=== PATIENT | female | born 1970 | race African-American/Black ===

== ENCOUNTER 2019-09-08 10:34 | Inpatient (IN) | payer MEDICAID ==
[~2019-09-08] VITALS: Ht 165.1 cm; Wt 68.2 kg
[2019-09-08] MEDS ORDERED: PIPERACILLIN/TAZ 3.375G PREMIX 50 ML IV ONE (11:00)
[2019-09-08] MEDS ORDERED: VANCOMYCIN 1 G PREMIX 200 ML IV ONE (11:00)
[2019-09-08 12:21] LABS: CLARITY URINE CLEAR (CLEAR); COLOR URINE YELLOW (YELLOW); KETONES URINE NEGATIVE (NEGATIVE); LEUKOCYTE ESTERASE URINE 1+ (NEGATIVE); NITRITE URINE NEGATIVE (NEGATIVE); OCCULT BLOOD URINE NEGATIVE (NEGATIVE); PH URINE 6.5 (4.5-8.0); PROTEIN URINE TRACE (NEGATIVE); SPECIFIC GRAVITY URINE 1.009 (1.005-1.030)
[2019-09-08] MEDS ORDERED: MORPHINE SULFATE 4 MG/ML CPJ (NOT FOR IM USE) IV ONE (12:30)
[2019-09-08 13:10] LABS: BASOPHILS % 0.6 % (0.0-2.0); EOSINOPHILS % 0.3 % (0.0-5.0); HEMATOCRIT. 33.1 % (36.0-48.0); LYMPHOCYTES % 12.7 % (20.0-50.0); MEAN CORPUSCULAR HEMOGLOBIN 29.1 pg (28.0-32.0); MEAN CORPUSCULAR VOLUME 87.5 fL (81.0-99.0); MEAN PLATELET VOLUME 7.9 fl (7.4-10.4); MONOCYTES % 5.4 % (2.0-8.0); PLATELET 514 x1000/uL (130-400); RED BLOOD CELL COUNT 3.79 mill/uL (4.2-5.4); RED CELL DISTRIBUTION WIDTH 15.6 % (11.6-14.6)
[2019-09-08 13:17] LABS: CHLORIDE 99 mEq/L (98-107)
[2019-09-08 13:27] LABS: INR 1.2; PROTHROMBIN TIME 12.7 sec (9.6-11.0)
[2019-09-08] MEDS: SODIUM CHLORIDE 0.9% 1,000 ML IV SCH (13:38)
[2019-09-08] MEDS ORDERED: POTASSIUM CHLORIDE 20MEQ/PACKET PO NR (13:45)
[2019-09-08] MEDS ORDERED: PIPERACILLIN/TAZ 3.375G PREMIX 50 ML IV SCH (13:45)
[2019-09-08] MEDS ORDERED: ONDANSETRON HCL 4MG/2ML INJ IV PRN (13:45)
[2019-09-08] MEDS ORDERED: ACETAMINOPHEN 325MG TABLET PO PRN (13:45)
[2019-09-08] MEDS ORDERED: POTASSIUM CHLORIDE INJ 40 MEQ in DEXT 5% WATER 250 ML IV NR (14:00)
[2019-09-08] MEDS: MORPHINE SULFATE 2 MG/ML CPJ (NOT FOR IM USE) IV PRN ×2 (15:02→23:59)
[2019-09-08] MEDS ORDERED: HYDROCODONE/ACETAMINOPHEN 5/325MG TABLET PO PRN (16:30)
[2019-09-08] MEDS: HYDROCODONE/ACETAMINOPHEN 5/325MG TABLET PO PRN (16:35)
[2019-09-08 17:53] LABS: PHOSPHORUS 1.9 mg/dL (2.5-4.9)
[2019-09-08] MEDS ORDERED: MAGNESIUM 2 G PREMIX 50 ML IV NR (21:07)
[2019-09-08 21:31] LABS: TOTAL IRON BINDING CAPACITY 249 ug/dL (250-450)
[2019-09-08 22:30] VITALS: BP 141/92
[2019-09-08 23:38] VITALS: BP 136/88
[2019-09-09] MEDS ORDERED: OMEP20TA15 MT (00:16)
[2019-09-09] MEDS: VANCOMYCIN 750 MG PREMIX 150 ML IV SCH ×3 (00:46→18:26)
[2019-09-09 04:00] VITALS: BP 140/93
[2019-09-09] MEDS: MORPHINE SULFATE 2 MG/ML CPJ (NOT FOR IM USE) IV PRN ×2 (04:05→21:54)
[2019-09-09 08:27] VITALS: BP 150/82
[2019-09-09] MEDS: PIPERACILLIN/TAZOBACTAM 3.375 G in DEXT 5% WATER 100 ML IV SCH ×4 (08:55→17:04)
[2019-09-09] MEDS: HYDROCODONE/ACETAMINOPHEN 5/325MG TABLET PO PRN ×3 (08:55→17:47)
[2019-09-09 11:36] VITALS: BP 145/96
[2019-09-09 16:13] VITALS: BP 155/91
[2019-09-09] MEDS: SODIUM CHLORIDE 0.9% 1,000 ML IV SCH (18:27)
[2019-09-09 19:52] LABS: HEMATOCRIT. 26.2 % (36.0-48.0); HEMOGLOBIN. 8.9 g/dL (12.0-16.0); MEAN CORPUSCULAR HEMOGLOBIN 29.8 pg (28.0-32.0); MEAN CORPUSCULAR VOLUME 87.2 fL (81.0-99.0); MEAN PLATELET VOLUME 7.8 fl (7.4-10.4); MONOCYTES % 8.8 % (2.0-8.0); NEUTROPHILS % 60.2 % (40.0-76.0); PLATELET 416 x1000/uL (130-400); RED CELL DISTRIBUTION WIDTH 15.5 % (11.6-14.6)
[2019-09-09 19:54] LABS: CHLORIDE 103 mEq/L (98-107)
[2019-09-09 20:00] VITALS: BP 155/101
[2019-09-09 20:03] LABS: LDL CHOLESTEROL 88 mg/dL (5-100)
[2019-09-09 20:04] LABS: HDL CHOLESTEROL 26 mg/dL (40-59)
[2019-09-09] MEDS ORDERED: POTASSIUM CHLORIDE 20MEQ TABLET SR PO SCH (21:21)
[2019-09-09] MEDS ORDERED: MAGNESIUM 4 G PREMIX 100 ML IV SCH (23:00)
[2019-09-10] VITALS: BP 158/91
[2019-09-10] MEDS: PIPERACILLIN/TAZOBACTAM 3.375 G in DEXT 5% WATER 100 ML IV SCH ×3 (00:44→16:40)
[2019-09-10] MEDS: MORPHINE SULFATE 2 MG/ML CPJ (NOT FOR IM USE) IV PRN ×6 (02:12→22:19)
[2019-09-10] MEDS: VANCOMYCIN 750 MG PREMIX 150 ML IV SCH ×3 (02:16→21:10)
[2019-09-10 04:00] VITALS: BP 150/100
[2019-09-10 06:11] LABS: BASOPHILS % 0.9 % (0.0-2.0); EOSINOPHILS % 2.9 % (0.0-5.0); HEMATOCRIT. 27.7 % (36.0-48.0); HEMOGLOBIN. 9.4 g/dL (12.0-16.0); LYMPHOCYTES % 24.6 % (20.0-50.0); MEAN CORPUSCULAR HEMOGLOBIN 29.5 pg (28.0-32.0); MONOCYTES % 7.7 % (2.0-8.0); NEUTROPHILS % 63.9 % (40.0-76.0); PLATELET 413 x1000/uL (130-400); RED BLOOD CELL COUNT 3.18 mill/uL (4.2-5.4); RED CELL DISTRIBUTION WIDTH 15.6 % (11.6-14.6)
[2019-09-10 06:29] LABS: CHLORIDE 106 mEq/L (98-107)
[2019-09-10 08:00] VITALS: BP 157/105
[2019-09-10 12:00] VITALS: BP 147/100
[2019-09-10 16:00] VITALS: BP 158/111
[2019-09-10 20:00] VITALS: BP 156/104
[2019-09-11] MEDS: PIPERACILLIN/TAZOBACTAM 3.375 G in DEXT 5% WATER 100 ML IV SCH ×3 (00:01→16:00)
[2019-09-11] MEDS: MORPHINE SULFATE 2 MG/ML CPJ (NOT FOR IM USE) IV PRN ×4 (02:28→19:59)
[2019-09-11 04:00] VITALS: BP 169/108
[2019-09-11] MEDS: CLONIDINE 0.1MG TABLET PO PRN ×2 (04:18→10:05)
[2019-09-11 06:00] VITALS: BP 137/95
[2019-09-11 06:50] LABS: CHLORIDE 107 mEq/L (98-107)
[2019-09-11 06:54] LABS: EOSINOPHILS % 3.1 % (0.0-5.0); HEMATOCRIT. 29.8 % (36.0-48.0); HEMOGLOBIN. 9.9 g/dL (12.0-16.0); LYMPHOCYTES % 29.5 % (20.0-50.0); MEAN CORPUSCULAR HEMOGLOBIN 29.3 pg (28.0-32.0); MEAN CORPUSCULAR VOLUME 87.8 fL (81.0-99.0); MEAN PLATELET VOLUME 7.9 fl (7.4-10.4); MONOCYTES % 6.8 % (2.0-8.0); NEUTROPHILS % 59.6 % (40.0-76.0); PLATELET 492 x1000/uL (130-400); RED BLOOD CELL COUNT 3.39 mill/uL (4.2-5.4)
[2019-09-11 06:56] LABS: PHOSPHORUS 3.9 mg/dL (2.5-4.9)
[2019-09-11 08:00] VITALS: BP 166/107
[2019-09-11] MEDS: VANCOMYCIN 750 MG PREMIX 150 ML IV SCH ×2 (09:19→20:26)
[2019-09-11 12:00] VITALS: BP 146/101
[2019-09-11] MEDS ORDERED: LIDOCAINE HCL 1% 20ML VIAL (Pyxis) INJ ONE ×2 (14:42→16:38)
[2019-09-11] MEDS ORDERED: BUPIVACAINE HCL/PF 0.5% (5MG/ML) 10ML ONE ×2 (14:42→15:14)
[2019-09-11] MEDS ORDERED: BACITRACIN 50,000 UNITS/VIAL ONE (14:43)
[2019-09-11 16:00] VITALS: BP 147/98
[2019-09-11] MEDS ORDERED: PROPOFOL 200MG/20ML VIAL IV ONE (16:37)
[2019-09-11] MEDS ORDERED: ROCURONIUM BROMIDE 10MG/ML VIAL 5ML IV ONE (16:37)
[2019-09-11] MEDS ORDERED: MIDAZOLAM HCL 2 MG/2 ML VIAL ONE (16:38)
[2019-09-11] MEDS ORDERED: FENTANYL CITRATE/PF 50MCG/ML 2ML VIAL ONE (16:38)
[2019-09-11] MEDS ORDERED: EPHEDRINE SULFATE 50MG/ML VIAL ONE (16:52)
[2019-09-11] MEDS ORDERED: MAGNESIUM 4 G PREMIX 100 ML IV NR ×2 (17:00→21:00)
[2019-09-11] MEDS ORDERED: ONDANSETRON HCL 4MG/2ML INJ ONE (17:12)
[2019-09-11] MEDS ORDERED: DEXAMETHASONE 4MG/ML 1ML VIAL ONE (17:12)
[2019-09-11] MEDS ORDERED: HYDROMORPHONE HCL/PF 2MG/ML CPJ IV PRN (17:45)
[2019-09-11 20:00] VITALS: BP 107/67
[2019-09-11] MEDS: ASCORBIC ACID 500 MG TABLET PO SCH (20:26)
[2019-09-11] MEDS: SODIUM CHLORIDE 0.9% 1,000 ML IV SCH (21:38)
[2019-09-12] VITALS: BP 152/103
[2019-09-12] MEDS: CLONIDINE 0.1MG TABLET PO PRN ×2 (00:15→07:04)
[2019-09-12] MEDS: MORPHINE SULFATE 2 MG/ML CPJ (NOT FOR IM USE) IV PRN ×6 (00:17→21:32)
[2019-09-12 04:00] VITALS: BP 131/93
[2019-09-12] MEDS: CEFAZOLIN 2,000 MG in DEXT 5% WATER 100 ML IV SCH ×3 (05:13→21:30)
[2019-09-12 07:39] LABS: CHLORIDE 102 mEq/L (98-107)
[2019-09-12 08:00] VITALS: BP 156/99
[2019-09-12] MEDS: ASCORBIC ACID 500 MG TABLET PO SCH ×2 (09:35→21:30)
[2019-09-12] MEDS: ZINC SULFATE 220 MG ( 50 ) CAPSULE PO SCH (09:36)
[2019-09-12] MEDS: SODIUM CHLORIDE 0.9% 1,000 ML IV SCH (10:58)
[2019-09-12] MEDS ORDERED: MORPHINE SULFATE 2 MG/ML CPJ (NOT FOR IM USE) IV SCH (11:15)
[2019-09-12 12:00] VITALS: BP_SYST 144; BP_SYST 156; BP_DIAS 98; BP_DIAS 99
[2019-09-12 16:00] VITALS: BP 155/103
[2019-09-12 20:00] VITALS: BP 152/95
[2019-09-13] VITALS: BP 154/102
[2019-09-13] MEDS: SODIUM CHLORIDE 0.9% 1,000 ML IV SCH ×2 (00:18→05:26)
[2019-09-13] MEDS: CLONIDINE 0.1MG TABLET PO PRN ×2 (01:34→22:08)
[2019-09-13] MEDS: MORPHINE SULFATE 2 MG/ML CPJ (NOT FOR IM USE) IV PRN ×6 (01:35→21:59)
[2019-09-13 04:00] VITALS: BP 155/97
[2019-09-13] MEDS: CEFAZOLIN 2,000 MG in DEXT 5% WATER 100 ML IV SCH ×3 (05:26→21:38)
[2019-09-13] MEDS: ASCORBIC ACID 500 MG TABLET PO SCH ×2 (09:49→20:46)
[2019-09-13] MEDS: ZINC SULFATE 220 MG ( 50 ) CAPSULE PO SCH (09:49)
[2019-09-13 16:05] LABS: CHLORIDE 103 mEq/L (98-107)
[2019-09-13 17:52] LABS: BASOPHILS % 0.4 % (0.0-2.0); EOSINOPHILS % 1.7 % (0.0-5.0); HEMATOCRIT. 30.2 % (36.0-48.0); HEMOGLOBIN. 10.3 g/dL (12.0-16.0); LYMPHOCYTES % 22.1 % (20.0-50.0); MEAN CORPUSCULAR HEMOGLOBIN 29.8 pg (28.0-32.0); MEAN CORPUSCULAR VOLUME 87.7 fL (81.0-99.0); MEAN PLATELET VOLUME 7.9 fl (7.4-10.4); MONOCYTES % 7.6 % (2.0-8.0); NEUTROPHILS % 68.2 % (40.0-76.0); PLATELET 498 x1000/uL (130-400); RED BLOOD CELL COUNT 3.45 mill/uL (4.2-5.4); RED CELL DISTRIBUTION WIDTH 15.9 % (11.6-14.6)
[2019-09-13 20:00] VITALS: BP 168/91
[2019-09-14] VITALS: BP 138/91
[2019-09-14] MEDS: MORPHINE SULFATE 2 MG/ML CPJ (NOT FOR IM USE) IV PRN ×5 (02:03→21:13)
[2019-09-14 04:00] VITALS: BP 148/93
[2019-09-14] MEDS: CEFAZOLIN 2,000 MG in DEXT 5% WATER 100 ML IV SCH ×3 (07:30→21:12)
[2019-09-14 08:00] VITALS: BP 167/108
[2019-09-14] MEDS: ZINC SULFATE 220 MG ( 50 ) CAPSULE PO SCH (08:25)
[2019-09-14] MEDS: ASCORBIC ACID 500 MG TABLET PO SCH ×2 (08:31→21:12)
[2019-09-14 12:00] VITALS: BP 161/109
[2019-09-14] MEDS: SODIUM CHLORIDE 0.9% 1,000 ML IV SCH (12:50)
[2019-09-14 16:00] VITALS: BP 179/101
[2019-09-14 20:00] VITALS: BP 163/98
[2019-09-14] MEDS: CLONIDINE 0.1MG TABLET PO PRN (21:13)
[2019-09-15] VITALS: BP 154/101
[2019-09-15] MEDS ORDERED: VANCOMYCIN 1500MG in DEXTROSE 5% WATER 250ML IV NR (01:00)
[2019-09-15] MEDS: MORPHINE SULFATE 4 MG/ML CPJ (NOT FOR IM USE) IV PRN ×5 (01:43→20:10)
[2019-09-15 04:00] VITALS: BP 169/105
[2019-09-15] MEDS: CEFAZOLIN 2,000 MG in DEXT 5% WATER 100 ML IV SCH ×3 (05:18→21:00)
[2019-09-15] MEDS: CLONIDINE 0.1MG TABLET PO PRN ×3 (05:19→20:09)
[2019-09-15] MEDS: SODIUM CHLORIDE 0.9% 1,000 ML IV SCH (05:39)
[2019-09-15] MEDS: AMLODIPINE 10MG TABLET PO SCH (07:01)
[2019-09-15 08:00] VITALS: BP 152/108
[2019-09-15] MEDS: VANCOMYCIN 750 MG PREMIX 150 ML IV SCH ×2 (08:00→15:16)
[2019-09-15] MEDS: ASCORBIC ACID 500 MG TABLET PO SCH ×2 (09:00→20:15)
[2019-09-15] MEDS: ZINC SULFATE 220 MG ( 50 ) CAPSULE PO SCH (09:00)
[2019-09-15 12:00] VITALS: BP 147/100
[2019-09-15 16:00] VITALS: BP 140/96
[2019-09-15 20:00] VITALS: BP 162/99
[2019-09-16] VITALS: BP 155/95
[2019-09-16] MEDS: VANCOMYCIN 750 MG PREMIX 150 ML IV SCH ×2 (00:38→09:11)
[2019-09-16] MEDS: MORPHINE SULFATE 4 MG/ML CPJ (NOT FOR IM USE) IV PRN ×6 (00:38→21:54)
[2019-09-16 04:00] VITALS: BP 167/96
[2019-09-16] MEDS: CEFAZOLIN 2,000 MG in DEXT 5% WATER 100 ML IV SCH ×3 (05:28→21:22)
[2019-09-16] MEDS: CLONIDINE 0.1MG TABLET PO PRN (05:35)
[2019-09-16] MEDS: SODIUM CHLORIDE 0.9% 1,000 ML IV SCH ×2 (05:46→21:23)
[2019-09-16 08:00] VITALS: BP 127/89
[2019-09-16] MEDS: ASCORBIC ACID 500 MG TABLET PO SCH ×2 (09:10→21:22)
[2019-09-16] MEDS: ZINC SULFATE 220 MG ( 50 ) CAPSULE PO SCH (09:10)
[2019-09-16] MEDS: AMLODIPINE 10MG TABLET PO SCH (09:11)
[2019-09-16 12:00] VITALS: BP 128/86
[2019-09-16 16:00] VITALS: BP 144/97
[2019-09-16] MEDS: DIPHENHYDRAMINE 25MG CAPSULE PO PRN (17:44)
[2019-09-16 20:00] VITALS: BP 144/87
[2019-09-16] MEDS ORDERED: LEVOFLOXACIN 750MG PREMIX 150 ML IV NR (23:59)
[2019-09-17] VITALS: BP 142/97
[2019-09-17] MEDS ORDERED: VANCOMYCIN 750 MG PREMIX 150 ML IV SCH
[2019-09-17] MEDS: DIPHENHYDRAMINE 25MG CAPSULE PO PRN ×3 (01:21→17:51)
[2019-09-17] MEDS: MORPHINE SULFATE 4 MG/ML CPJ (NOT FOR IM USE) IV PRN ×5 (03:38→22:04)
[2019-09-17 04:00] VITALS: BP 149/95
[2019-09-17] MEDS: VANCOMYCIN 750 MG PREMIX 150 ML IV SCH ×3 (06:20→22:04)
[2019-09-17 08:00] VITALS: BP_SYST 152; BP_DIAS 100; BP_DIAS 80
[2019-09-17] MEDS: ZINC SULFATE 220 MG ( 50 ) CAPSULE PO SCH (09:22)
[2019-09-17] MEDS: ASCORBIC ACID 500 MG TABLET PO SCH ×2 (09:22→20:38)
[2019-09-17] MEDS: AMLODIPINE 10MG TABLET PO SCH (09:23)
[2019-09-17] MEDS: SODIUM CHLORIDE 0.9% 1,000 ML IV SCH ×2 (10:58→23:48)
[2019-09-17 12:00] VITALS: BP 148/109
[2019-09-17] MEDS: CLONIDINE 0.1MG TABLET PO PRN (12:22)
[2019-09-17] MEDS: LEVOFLOXACIN 500MG PREMIX 100 ML IV SCH (13:35)
[2019-09-17 16:00] VITALS: BP 139/95
[2019-09-17 20:00] VITALS: BP 139/88
[2019-09-18] VITALS: BP 138/88
[2019-09-18] MEDS: DIPHENHYDRAMINE 25MG CAPSULE PO PRN ×2 (00:44→18:29)
[2019-09-18] MEDS: MORPHINE SULFATE 4 MG/ML CPJ (NOT FOR IM USE) IV PRN ×5 (02:51→20:05)
[2019-09-18 04:00] VITALS: BP 148/93
[2019-09-18] MEDS: VANCOMYCIN 750 MG PREMIX 150 ML IV SCH ×3 (06:11→15:52)
[2019-09-18] MEDS: ASCORBIC ACID 500 MG TABLET PO SCH ×2 (08:51→20:04)
[2019-09-18] MEDS: AMLODIPINE 10MG TABLET PO SCH (08:51)
[2019-09-18] MEDS: ZINC SULFATE 220 MG ( 50 ) CAPSULE PO SCH (08:51)
[2019-09-18 12:00] VITALS: BP 144/94
[2019-09-18] MEDS: SODIUM CHLORIDE 0.9% 1,000 ML IV SCH ×2 (13:38→20:16)
[2019-09-18] MEDS: LEVOFLOXACIN 500MG PREMIX 100 ML IV SCH (14:24)
[2019-09-18 16:00] VITALS: BP 141/97
[2019-09-18 20:00] VITALS: BP 155/100
[2019-09-19] VITALS: BP 150/100
[2019-09-19] MEDS: VANCOMYCIN 750 MG PREMIX 150 ML IV SCH ×4 (00:14→22:58)
[2019-09-19] MEDS: MORPHINE SULFATE 4 MG/ML CPJ (NOT FOR IM USE) IV PRN ×6 (00:15→22:55)
[2019-09-19 04:00] VITALS: BP 146/95
[2019-09-19] MEDS: ASCORBIC ACID 500 MG TABLET PO SCH ×2 (09:17→22:58)
[2019-09-19] MEDS: ZINC SULFATE 220 MG ( 50 ) CAPSULE PO SCH (09:17)
[2019-09-19] MEDS: AMLODIPINE 10MG TABLET PO SCH (09:18)
[2019-09-19 12:00] VITALS: BP 139/88
[2019-09-19] MEDS: LEVOFLOXACIN 500MG PREMIX 100 ML IV SCH (14:02)
[2019-09-19 16:00] VITALS: BP 129/89
[2019-09-19] MEDS: SODIUM CHLORIDE 0.9% 1,000 ML IV SCH ×2 (16:29→22:59)
[2019-09-19] MEDS: DIPHENHYDRAMINE 25MG CAPSULE PO PRN (18:47)
[2019-09-19 20:00] VITALS: BP 160/95
[2019-09-20] VITALS: BP 131/87
[2019-09-20] MEDS: MORPHINE SULFATE 4 MG/ML CPJ (NOT FOR IM USE) IV PRN ×6 (02:57→23:47)
[2019-09-20 04:00] VITALS: BP 143/97
[2019-09-20] MEDS: VANCOMYCIN 750 MG PREMIX 150 ML IV SCH ×3 (06:15→21:39)
[2019-09-20] MEDS: DIPHENHYDRAMINE 25MG CAPSULE PO PRN ×3 (07:01→19:42)
[2019-09-20 08:00] VITALS: BP 130/89
[2019-09-20] MEDS: AMLODIPINE 10MG TABLET PO SCH (09:53)
[2019-09-20] MEDS: ASCORBIC ACID 500 MG TABLET PO SCH ×2 (09:53→19:42)
[2019-09-20] MEDS: ZINC SULFATE 220 MG ( 50 ) CAPSULE PO SCH (09:53)
[2019-09-20] MEDS: LEVOFLOXACIN 500MG PREMIX 100 ML IV SCH (13:59)
[2019-09-20 20:00] VITALS: BP 126/77
[2019-09-21] VITALS: BP 129/85
[2019-09-21] MEDS: MORPHINE SULFATE 4 MG/ML CPJ (NOT FOR IM USE) IV PRN ×5 (03:59→21:38)
[2019-09-21 04:00] VITALS: BP 131/86
[2019-09-21] MEDS: VANCOMYCIN 750 MG PREMIX 150 ML IV SCH ×3 (05:38→21:37)
[2019-09-21 08:00] VITALS: BP 128/92
[2019-09-21] MEDS: ASCORBIC ACID 500 MG TABLET PO SCH ×2 (08:07→21:37)
[2019-09-21] MEDS: AMLODIPINE 10MG TABLET PO SCH (08:07)
[2019-09-21] MEDS: ZINC SULFATE 220 MG ( 50 ) CAPSULE PO SCH (08:07)
[2019-09-21] MEDS: SODIUM CHLORIDE 0.9% 1,000 ML IV SCH ×3 (08:18→21:39)
[2019-09-21 12:00] VITALS: BP 125/83
[2019-09-21] MEDS: LEVOFLOXACIN 500MG PREMIX 100 ML IV SCH (12:56)
[2019-09-21 16:00] VITALS: BP 112/76
[2019-09-21] MEDS: DIPHENHYDRAMINE 25MG CAPSULE PO PRN (17:33)
[2019-09-21 20:00] VITALS: BP 116/72
[2019-09-22] VITALS: BP 122/86
[2019-09-22] MEDS: DIPHENHYDRAMINE 25MG CAPSULE PO PRN ×4 (00:19→23:35)
[2019-09-22] MEDS: MORPHINE SULFATE 4 MG/ML CPJ (NOT FOR IM USE) IV PRN ×4 (01:50→15:13)
[2019-09-22 04:00] VITALS: BP 124/82
[2019-09-22] MEDS: VANCOMYCIN 750 MG PREMIX 150 ML IV SCH ×3 (05:52→21:07)
[2019-09-22 08:00] VITALS: BP 133/84
[2019-09-22] MEDS: ZINC SULFATE 220 MG ( 50 ) CAPSULE PO SCH (08:45)
[2019-09-22] MEDS: ASCORBIC ACID 500 MG TABLET PO SCH ×2 (08:46→20:15)
[2019-09-22] MEDS: AMLODIPINE 10MG TABLET PO SCH (08:46)
[2019-09-22] MEDS: SODIUM CHLORIDE 0.9% 1,000 ML IV SCH ×2 (10:23→23:36)
[2019-09-22 12:00] VITALS: BP 128/87
[2019-09-22] MEDS: LEVOFLOXACIN 500MG PREMIX 100 ML IV SCH (13:09)
[2019-09-22 16:00] VITALS: BP 127/84
[2019-09-22 20:00] VITALS: BP 124/89
[2019-09-22] MEDS ORDERED: MORPHINE SULFATE 4 MG/ML CPJ (NOT FOR IM USE) IV PRN (20:15)
[2019-09-23] VITALS: BP 124/84
[2019-09-23] MEDS: MORPHINE SULFATE 4 MG/ML CPJ (NOT FOR IM USE) IV PRN ×5 (01:51→20:12)
[2019-09-23 04:00] VITALS: BP 133/84
[2019-09-23] MEDS: DIPHENHYDRAMINE 25MG CAPSULE PO PRN ×2 (06:15→20:25)
[2019-09-23] MEDS: VANCOMYCIN 750 MG PREMIX 150 ML IV SCH ×3 (06:15→22:13)
[2019-09-23 08:00] VITALS: BP 128/84
[2019-09-23] MEDS: AMLODIPINE 10MG TABLET PO SCH (09:21)
[2019-09-23] MEDS: ZINC SULFATE 220 MG ( 50 ) CAPSULE PO SCH (09:21)
[2019-09-23] MEDS: ASCORBIC ACID 500 MG TABLET PO SCH ×2 (09:21→20:12)
[2019-09-23 12:00] VITALS: BP 125/87
[2019-09-23] MEDS: LEVOFLOXACIN 500MG PREMIX 100 ML IV SCH (13:59)
[2019-09-23] MEDS: SODIUM CHLORIDE 0.9% 1,000 ML IV SCH (13:59)
[2019-09-23 15:41] LABS: BASOPHILS % 1.4 % (0.0-2.0); EOSINOPHILS % 1.7 % (0.0-5.0); HEMATOCRIT. 28.7 % (36.0-48.0); HEMOGLOBIN. 9.8 g/dL (12.0-16.0); LYMPHOCYTES % 24.8 % (20.0-50.0); MEAN CORPUSCULAR HEMOGLOBIN 29.2 pg (28.0-32.0); MEAN CORPUSCULAR VOLUME 85.6 fL (81.0-99.0); MONOCYTES % 9.2 % (2.0-8.0); NEUTROPHILS % 62.9 % (40.0-76.0); PLATELET 436 x1000/uL (130-400); RED BLOOD CELL COUNT 3.35 mill/uL (4.2-5.4); RED CELL DISTRIBUTION WIDTH 15.1 % (11.6-14.6)
[2019-09-23 15:49] LABS: CHLORIDE 103 mEq/L (98-107)
[2019-09-23 16:00] VITALS: BP 11/74
[2019-09-23] MEDS: HYDROCODONE/ACETAMINOPHEN 5/325MG TABLET PO PRN (17:18)
[2019-09-23 20:00] VITALS: BP 127/80
[2019-09-24] VITALS: BP 120/68
[2019-09-24] MEDS: MORPHINE SULFATE 4 MG/ML CPJ (NOT FOR IM USE) IV PRN ×5 (00:14→19:08)
[2019-09-24] MEDS: HYDROCODONE/ACETAMINOPHEN 5/325MG TABLET PO PRN ×3 (02:22→21:27)
[2019-09-24 04:00] VITALS: BP 128/79
[2019-09-24] MEDS: VANCOMYCIN 750 MG PREMIX 150 ML IV SCH ×3 (05:48→22:00)
[2019-09-24 08:00] VITALS: BP 121/80
[2019-09-24] MEDS: AMLODIPINE 10MG TABLET PO SCH (09:29)
[2019-09-24] MEDS: ASCORBIC ACID 500 MG TABLET PO SCH ×2 (09:29→21:27)
[2019-09-24] MEDS: ZINC SULFATE 220 MG ( 50 ) CAPSULE PO SCH (09:32)
[2019-09-24] MEDS ORDERED: POTASSIUM CHLORIDE 20MEQ TABLET SR PO NR (11:00)
[2019-09-24 12:00] VITALS: BP 133/78
[2019-09-24] MEDS: LEVOFLOXACIN 500MG PREMIX 100 ML IV SCH (14:32)
[2019-09-24 16:00] VITALS: BP 121/74
[2019-09-24] MEDS: DIPHENHYDRAMINE 25MG CAPSULE PO PRN ×2 (17:11→21:28)
[2019-09-24] MEDS: SODIUM CHLORIDE 0.9% 1,000 ML IV SCH (17:17)
[2019-09-24 20:00] VITALS: BP 134/83
[2019-09-25] VITALS: BP 132/84
[2019-09-25 04:00] VITALS: BP 121/78
[2019-09-25] MEDS: DIPHENHYDRAMINE 25MG CAPSULE PO PRN ×3 (04:17→21:09)
[2019-09-25] MEDS: HYDROCODONE/ACETAMINOPHEN 5/325MG TABLET PO PRN ×6 (04:18→21:43)
[2019-09-25] MEDS: VANCOMYCIN 750 MG PREMIX 150 ML IV SCH ×3 (06:00→22:00)
[2019-09-25] MEDS: MORPHINE SULFATE 4 MG/ML CPJ (NOT FOR IM USE) IV PRN (06:05)
[2019-09-25 08:00] VITALS: BP 122/80
[2019-09-25] MEDS: ZINC SULFATE 220 MG ( 50 ) CAPSULE PO SCH (09:37)
[2019-09-25] MEDS: AMLODIPINE 10MG TABLET PO SCH (09:37)
[2019-09-25] MEDS: ASCORBIC ACID 500 MG TABLET PO SCH ×3 (09:37→21:13)
[2019-09-25 12:00] VITALS: BP 126/86
[2019-09-25] MEDS: LEVOFLOXACIN 500MG PREMIX 100 ML IV SCH (14:00)
[2019-09-25] MEDS ORDERED: HYDROCODONE/ACETAMINOPHEN 5/325MG TABLET PO PRN (15:00)
[2019-09-25 16:00] VITALS: BP 134/91
[2019-09-25 20:00] VITALS: BP 133/89
[2019-09-26] VITALS: BP 128/81
[2019-09-26] MEDS: HYDROCODONE/ACETAMINOPHEN 5/325MG TABLET PO PRN ×4 (01:59→21:40)
[2019-09-26 04:00] VITALS: BP 147/90
[2019-09-26] MEDS: DIPHENHYDRAMINE 25MG CAPSULE PO PRN ×3 (04:10→21:38)
[2019-09-26] MEDS: VANCOMYCIN 750 MG PREMIX 150 ML IV SCH ×3 (06:00→23:13)
[2019-09-26 08:00] VITALS: BP 145/110
[2019-09-26] MEDS ORDERED: LIDOCAINE HCL 1% 20ML VIAL (Pyxis) INJ ONE (09:02)
[2019-09-26] MEDS: ZINC SULFATE 220 MG ( 50 ) CAPSULE PO SCH (10:06)
[2019-09-26] MEDS: AMLODIPINE 10MG TABLET PO SCH (10:06)
[2019-09-26] MEDS: MORPHINE SULFATE 4 MG/ML CPJ (NOT FOR IM USE) IV PRN ×4 (10:07→23:14)
[2019-09-26 12:00] VITALS: BP 143/99
[2019-09-26] MEDS: LEVOFLOXACIN 500MG PREMIX 100 ML IV SCH (13:54)
[2019-09-26 20:00] VITALS: BP 129/86
[2019-09-26] MEDS: ASCORBIC ACID 500 MG TABLET PO SCH (23:13)
[2019-09-26] MEDS: SODIUM CHLORIDE 0.9% 1,000 ML IV SCH (23:20)
[2019-09-27 04:00] VITALS: BP 146/99
[2019-09-27] MEDS: MORPHINE SULFATE 4 MG/ML CPJ (NOT FOR IM USE) IV PRN ×4 (04:37→20:20)
[2019-09-27] MEDS: DIPHENHYDRAMINE 25MG CAPSULE PO PRN ×3 (04:47→17:39)
[2019-09-27] MEDS: VANCOMYCIN 750 MG PREMIX 150 ML IV SCH (06:33)
[2019-09-27] MEDS: HYDROCODONE/ACETAMINOPHEN 5/325MG TABLET PO PRN ×4 (06:36→22:39)
[2019-09-27] MEDS: AMLODIPINE 10MG TABLET PO SCH (09:18)
[2019-09-27] MEDS: ASCORBIC ACID 500 MG TABLET PO SCH ×2 (09:18→20:20)
[2019-09-27] MEDS: ZINC SULFATE 220 MG ( 50 ) CAPSULE PO SCH (09:18)
[2019-09-27] MEDS: SODIUM CHLORIDE 0.9% 1,000 ML IV SCH ×2 (10:58→22:39)
[2019-09-27] MEDS: DOCUSATE SODIUM 100MG CAPSULE PO SCH ×2 (13:17→16:13)
[2019-09-27] MEDS: LEVOFLOXACIN 500MG PREMIX 100 ML IV SCH (13:18)
[2019-09-27 16:00] VITALS: BP 137/90
[2019-09-27 20:00] VITALS: BP 130/93
[2019-09-28] VITALS: BP 138/87
[2019-09-28] MEDS: DIPHENHYDRAMINE 25MG CAPSULE PO PRN ×3 (00:39→15:08)
[2019-09-28] MEDS: MORPHINE SULFATE 4 MG/ML CPJ (NOT FOR IM USE) IV PRN (00:40)
[2019-09-28 04:00] VITALS: BP 127/83
[2019-09-28] MEDS: HYDROCODONE/ACETAMINOPHEN 5/325MG TABLET PO PRN (05:12)
[2019-09-28 08:00] VITALS: BP 135/90
[2019-09-28] MEDS: ZINC SULFATE 220 MG ( 50 ) CAPSULE PO SCH (08:45)
[2019-09-28] MEDS: AMLODIPINE 10MG TABLET PO SCH (08:45)
[2019-09-28] MEDS: MORPHINE SULFATE 2 MG/ML CPJ (NOT FOR IM USE) IV PRN ×2 (08:45→21:04)
[2019-09-28] MEDS: ASCORBIC ACID 500 MG TABLET PO SCH ×2 (08:45→21:03)
[2019-09-28] MEDS: DOCUSATE SODIUM 100MG CAPSULE PO SCH ×2 (08:45→17:33)
[2019-09-28] MEDS ORDERED: VANCOMYCIN 1,000 MG in DEXT 5% WATER 250 ML IV SCH (10:00)
[2019-09-28] MEDS ORDERED: VANCOMYCIN 750 MG PREMIX 150 ML IV SCH (10:00)
[2019-09-28] MEDS: HYDROCODONE/APAP 7.5/325MG 1 TAB TABLET PO PRN ×3 (11:08→23:34)
[2019-09-28 12:00] VITALS: BP 138/94
[2019-09-28] MEDS: SODIUM CHLORIDE 0.9% 1,000 ML IV SCH (13:38)
[2019-09-28 13:45] LABS: CHLORIDE 103 mEq/L (98-107)
[2019-09-28] MEDS ORDERED: POTASSIUM CHLORIDE 20MEQ TABLET SR PO SCH (14:15)
[2019-09-28] MEDS: LEVOFLOXACIN 500MG PREMIX 100 ML IV SCH (14:56)
[2019-09-28 16:00] VITALS: BP 138/95
[2019-09-28 20:00] VITALS: BP 135/91
[2019-09-29] VITALS: BP 164/96
[2019-09-29] MEDS: VANCOMYCIN 750 MG PREMIX 150 ML IV SCH ×2 (01:24→17:35)
[2019-09-29 04:00] VITALS: BP 152/98
[2019-09-29] MEDS: CLONIDINE 0.1MG TABLET PO PRN (05:31)
[2019-09-29] MEDS: HYDROCODONE/APAP 7.5/325MG 1 TAB TABLET PO PRN ×3 (05:38→20:22)
[2019-09-29] MEDS: SODIUM CHLORIDE 0.9% 1,000 ML IV SCH ×2 (07:26→17:10)
[2019-09-29 08:00] VITALS: BP 132/90
[2019-09-29] MEDS: ZINC SULFATE 220 MG ( 50 ) CAPSULE PO SCH (09:07)
[2019-09-29] MEDS: ASCORBIC ACID 500 MG TABLET PO SCH ×2 (09:07→20:21)
[2019-09-29] MEDS: DOCUSATE SODIUM 100MG CAPSULE PO SCH ×2 (09:07→17:34)
[2019-09-29] MEDS: AMLODIPINE 10MG TABLET PO SCH (09:07)
[2019-09-29] MEDS ORDERED: TRAMADOL 50MG TABLET PO PRN (10:15)
[2019-09-29 12:00] VITALS: BP 131/87
[2019-09-29] MEDS: MORPHINE SULFATE 2 MG/ML CPJ (NOT FOR IM USE) IV PRN (12:07)
[2019-09-29] MEDS: DIPHENHYDRAMINE 25MG CAPSULE PO PRN ×2 (12:43→22:26)
[2019-09-29] MEDS: LEVOFLOXACIN 500MG PREMIX 100 ML IV SCH (13:01)
[2019-09-29 16:00] VITALS: BP 129/89
[2019-09-29 20:00] VITALS: BP 139/90
[2019-09-30] VITALS: BP 136/98
[2019-09-30] MEDS: HYDROCODONE/APAP 7.5/325MG 1 TAB TABLET PO PRN ×2 (02:28→09:29)
[2019-09-30 04:00] VITALS: BP 141/95
[2019-09-30] MEDS: ASCORBIC ACID 500 MG TABLET PO SCH (09:24)
[2019-09-30] MEDS: ZINC SULFATE 220 MG ( 50 ) CAPSULE PO SCH (09:24)
[2019-09-30] MEDS: DOCUSATE SODIUM 100MG CAPSULE PO SCH (09:28)
[2019-09-30] MEDS: AMLODIPINE 10MG TABLET PO SCH (09:28)
[2019-09-30] MEDS: VANCOMYCIN 750 MG PREMIX 150 ML IV SCH (10:00)
[2019-09-30 12:00] VITALS: BP 140/98
[2019-09-30 12:32] LABS: CHLORIDE 101 mEq/L (98-107)
[2019-09-30] MEDS: LEVOFLOXACIN 500MG PREMIX 100 ML IV SCH (13:11)
[2019-09-30 14:54] VITALS: BP 140/98
[2019-09-30] MEDS: MORPHINE SULFATE 2 MG/ML CPJ (NOT FOR IM USE) IV PRN (14:54)
== END 2019-09-30 16:26 | disposition left against medical advice (07) | DRG 721 ==
LOC: ER 10:49 → 6EST 12:15 → ENRESERV 19:10 → 6EST 23:44
PROVIDERS: ADMIT Internal Medicine; ATTEND Internal Medicine
PROC: 0JB80ZZ Excision of Abdomen Subcutaneous Tissue and Fascia, Open Approach (ICD-10-PCS; principal; 2019-09-11)
DX: T81.41XA Infection following a procedure, superficial incisional surgical site, initial encounter (principal); A41.9 Sepsis, unspecified organism; T81.31XA Disruption of external operation (surgical) wound, not elsewhere classified, initial encounter; E83.42 Hypomagnesemia; Y83.8 Other surgical procedures as the cause of abnormal reaction of the patient, or of later complication, without mention of misadventure at the time of the procedure; I10 Essential (primary) hypertension; N39.0 Urinary tract infection, site not specified; D64.9 Anemia, unspecified; E87.6 Hypokalemia; Z59.0 Homelessness; Z79.899 Other long term (current) drug therapy; Y92.89 Other specified places as the place of occurrence of the external cause
CPT/HCPCS: 36415; 71045; 73130; 74176; 76937; 80048; 80053; 80061; 80202; 81003; 83540; 83550; 83735; 83880; 84100; 84443; 85025; 87070; 87075; 87077; 87186; 88305; 93005; 93970; 96365; 97110; 97162; 97166; 97168; 97535; 99285; C1725; J0690; J1100; J1956; J2250; J2270; J2405; J2543; J2704; J3010; J3370; J3475; J3480; J3490; J7060; Q0163